=== PATIENT | male | born 1950 | race Caucasian/White ===

== ENCOUNTER 2020-10-17 08:40 | Outpatient (CLI) | payer BC, SELFPAY ==
--- NOTE | 2020-10-17 | EST_ITS ---
Patient Info Name: Elmer Cain Age: 70 years : 1950 Gender: Male Ht: 66 in Wt: 187 lbs BSA: 2.01 m2 HR: 56 bpm BP: 121 / 75 mmHg Exam Date: 10/17/2020 9:16 AM Exam Location: [facility] Stress Patient Status: Outpatient Admit Date: 10/17/2020 Staff Ordering Physician: Alex Torres MD Food Preservation Scientist: Kell Monzon RDCS Attending Provider: Alex Torres MD Exercise Technologist: Estefani Luna CT Exercise Physician: Chet Desir MD Exam Type: CA echo dobutamine stress Study Info Indications - STABLE ANGINA PECTORIS Dobutamine stress echocardiogram is performed. Summary 1. The basal to mid inferior wall(s) are severely hyopkinetic post stress. 2. Overall global left ventricular systolic function Improved post stress. Ejection fraction 70 75%. 3. Abnormal dobutamine stress test for ischemic ST changes by ECG criteria. 4. Dobutamine stress echocardiogram is abnormal for ischemia. Stress Echo Findings Left Ventricle Left ventricular end systolic volume decreases post stress. The basal to mid inferior wall(s) are severely hyopkinetic post stress. Overall global left ventricular systolic function Improved post stress. Ejection fraction 70 75%. Left ventricular wall thickness is mildly increased. Left Ventricle Left ventricular chamber dimension is mildly enlarged. Left ventricular chamber wall thickness, systolic and diastolic function are normal with no regional wall motion abnormalities with an estimated ejection fraction of 65-70%. Left ventricular chamber dimension is mildly enlarged. Left Atria Left atrial chamber dimension is moderately enlarged. Left atrial chamber dimension is moderately enlarged. Right Atria Right atrial chamber dimension is mildly enlarged. Right atrial chamber dimension is mildly enlarged. Protocol: Dobutamine Max Pred HR: 150 bpm Target HR: 128 bpm Target HR Summary: Patient's target heart rate was achieved BP Response: Normal blood pressure response Termination Reason: Completed protocol Cardiac Symptoms: None Resting ECG Normal sinus rhythm. Inferior and anterolateral ST T wave abnormalities, consider ischemia. Stress ECG Exaggeration of the baseline ST abnormality. Greater than 1 mm of horizontal or downsloping ST depression - inferior leads. Greater than 1 mm of horizontal or downsloping ST depression - anterolateral leads. Arrhythmias Frequent PVCs. Occasional PACs. Short atrial runs also noted. Report Signatures Stress ECG Echo
== END 2020-10-17 08:41 | disposition home or self-care (01) ==
PROVIDERS: PCP Internal Medicine
DX: I20.8 Other forms of angina pectoris (principal); I25.10 Atherosclerotic heart disease of native coronary artery without angina pectoris
CPT/HCPCS: 93351; J0461; J1250

== ENCOUNTER 2022-05-06 00:15 | Day surgery (SDC) | payer MEDICARE, OTHER, SELFPAY ==
[2022-04-28 14:37] VITALS: BMI 29.5
--- NOTE | 2022-05-05 17:03 | PM.HPGS ---
History of Present Illness History of Present Illness Consent: Risks, benefits, and alternatives have been discussed and questions answered. Patient agrees to proceed with procedure. Chief complaint: dysphagia Narrative: Elmer Cain is a 71 year old male referred for investigation of chronic acid reflux. He has been taking omeprazole for quite a while. He is concerned about possible side effects from it. He stopped taking it a couple months ago and now uses a powdered substance containing immunoglobulins each morning. It seems to be helping him preventing heartburn. In the past his typical heartburn attack would be that he would have severe burning in his mid chest particularly when he would bend over. 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 He does not however regurgitate. Review of Systems Review of Systems: All systems reviewed & are unremarkable except as noted in HPI and below PMFSH Past Medical History Medical History Fusion of lumbar spine Hyperlipidemia Hypertension Migraine BABAK (obstructive sleep apnea) Thalassemia minor Surgical History Surgical History H/O aortic valve replacement Hx of CABG Family History Family History Mother Patient's mother is Family history of malignant neoplasm of ovary Father Patient's father is Other Family history of cardiovascular disease Family history of malignant neoplasm Hypertension Social History Social History Smoking status: Never smoker Alcohol intake: never Substance use: never Substance use type: does not use Lack of Transportation: No Lack of Food: Never True Current Housing: I Have Housing Concerned About Future Housing: No Difficulty Paying Gas/Electric Bills: No Difficulty Paying for Meds: No Currently Unemployed: No Education: Bachelor's Degree Difficulty w/ Childcare or Family Care: No Living arrangements: with family Spiritual care concerns: No Meds Home Medications and Allergies Home Medications Medication Instructions Recorded Confirmed Type apixaban 5 mg tablet (Eliquis) 5 mg PO BID 04/24/19 04/28/22 History aspirin 81 mg tablet,delayed 81 mg PO DAILY 04/24/19 04/28/22 History release (Aspir-Low) atorvastatin 40 mg tablet 40 mg PO HS 04/24/19 04/28/22 History fexofenadine 180 mg tablet 180 mg PO DAILY 04/24/19 04/28/22 History (Yenny Allergy) metoprolol tartrate 25 mg tablet 25 mg PO BID 04/24/19 04/28/22 History vitamin E 268 mg (400 unit) capsule 450 unit PO DAILY 04/24/19 04/28/22 History dofetilide 250 mcg capsule 250 mcg PO BID 02/27/20 04/28/22 History tramadol 50 mg tablet 50 mg PO Q6H PRN pain #30 tabs 10/06/21 04/28/22 Rx sildenafil 100 mg tablet 100 mg PO DAILY PRN sexual 04/14/22 04/28/22 Rx activity #30 tabs amlodipine 5 mg tablet 5 mg PO DAILY 04/28/22 04/28/22 History ascorbic acid (vitamin C) 1,000 mg 1 g PO DAILY 04/28/22 04/28/22 History capsule azelastine 205.5 mcg (0.15 %) 2 spray intranasal BID PRN Allergy 04/28/22 04/28/22 History nasal spray Symptoms carboxymethylcellulose sodium 1 % 2 drp EACH EYE BID PRN Dry Eyes 04/28/22 04/28/22 History eye liquid gel drops losartan 100 mg tablet 100 mg PO DAILY 04/28/22 04/28/22 History olopatadine 0.1 % eye drops 1 drp ophthalmic (eye) BID PRN 04/28/22 04/28/22 History Allergy Symptoms vitamin B complex 1 cap PO DAILY 04/28/22 04/28/22 History Allergies Allergy/AdvReac Type Severity Reaction Status Date / Time carrot Allergy Severe Unknown Verified 05/06/22 12:53 sibley Allergy Severe Swelling Verified 05/06/22 12:53 of the Eye Exam Const: General: alert Orientation/consciousness: patie
[2022-05-06] MEDS: GENTAMICIN 80MG/SOD CHL 50 ML 80 MG/50 ML BAG 100 MG IVPB (12:48)
[2022-05-06] MEDS: LACTATED RINGERS 1,000 ML 150 ML IV CONT (12:53)
[2022-05-06 12:57] VITALS: BP 145/78; PULSE 66; RESP 18; TEMP 36.2; O2SAT 99
[2022-05-06] MEDS: AMPICILLIN 2 GM/NS 100 ML 2 GM/100 ML BAG IVPB (13:22)
[2022-05-06 13:38] VITALS: BP 94/49; PULSE 58; RESP 23; O2SAT 99
--- NOTE | 2022-05-06 13:41 | WPDANESEPPF ---
Anes - Initial Pre Proc Eval Procedure: Operation Date: 05/06/22 14:00 Proposed Procedures p Esophagogastroduodenoscopy - Praveen Swann MD Date/Time: 05/06/22 13:41 Surgeon: Praveen Swann MD Pre Op Diagnosis: dysphagia Patient Data Age: 71 Gender: M Height: 1.68 m Weight: 85 kg Last Vital Signs Temp 97.1 F L 05/06/22 12:57 Pulse 66 05/06/22 12:57 Resp 18 05/06/22 12:57 BP 145/78 H 05/06/22 12:57 Pulse Ox 99 05/06/22 12:57 O2 Del Method Room Air 05/06/22 12:57 Allergies Allergy/AdvReac Type Severity Reaction Status Date / Time carrot Allergy Severe Unknown Verified 05/06/22 12:53 sibley Allergy Severe Swelling Verified 05/06/22 12:53 of the Eye Home Medications Medication Instructions Recorded Confirmed Type apixaban 5 mg tablet (Eliquis) 5 mg PO BID 04/24/19 05/06/22 History aspirin 81 mg tablet,delayed 81 mg PO DAILY 04/24/19 04/28/22 History release (Aspir-Low) atorvastatin 40 mg tablet 40 mg PO HS 04/24/19 04/28/22 History fexofenadine 180 mg tablet 180 mg PO DAILY 04/24/19 04/28/22 History (Yenny Allergy) metoprolol tartrate 25 mg tablet 25 mg PO BID 04/24/19 05/06/22 History vitamin E 268 mg (400 unit) capsule 450 unit PO DAILY 04/24/19 04/28/22 History dofetilide 250 mcg capsule 250 mcg PO BID 02/27/20 05/06/22 History tramadol 50 mg tablet 50 mg PO Q6H PRN pain #30 tabs 10/06/21 04/28/22 Rx sildenafil 100 mg tablet 100 mg PO DAILY PRN sexual 04/14/22 04/28/22 Rx activity #30 tabs amlodipine 5 mg tablet 5 mg PO DAILY 04/28/22 04/28/22 History ascorbic acid (vitamin C) 1,000 mg 1 g PO DAILY 04/28/22 04/28/22 History capsule azelastine 205.5 mcg (0.15 %) 2 spray intranasal BID PRN Allergy 04/28/22 04/28/22 History nasal spray Symptoms carboxymethylcellulose sodium 1 % 2 drp EACH EYE BID PRN Dry Eyes 04/28/22 04/28/22 History eye liquid gel drops losartan 100 mg tablet 100 mg PO DAILY 04/28/22 05/06/22 History olopatadine 0.1 % eye drops 1 drp ophthalmic (eye) BID PRN 04/28/22 04/28/22 History Allergy Symptoms vitamin B complex 1 cap PO DAILY 04/28/22 04/28/22 History Patient hx anesthesia problems: none Family hx anesthesia problems: none Results Review: All pre-operative results and documents have been reviewed as part of the pre-operative evaluation. [facility] Past Medical History Medical History Fusion of lumbar spine Hyperlipidemia Hypertension Migraine BABAK (obstructive sleep apnea) Thalassemia minor Surgical History Surgical History H/O aortic valve replacement Hx of CABG Family History Family History Mother Patient's mother is Family history of malignant neoplasm of ovary Father Patient's father is Other Family history of cardiovascular disease Family history of malignant neoplasm Hypertension Social History Social History Smoking status: Never smoker Alcohol intake: never Substance use: never Substance use type: does not use Lack of Transportation: No Lack of Food: Never True Current Housing: I Have Housing Concerned About Future Housing: No Difficulty Paying Gas/Electric Bills: No Difficulty Paying for Meds: No Currently Unemployed: No Education: Bachelor's Degree Difficulty w/ Childcare or Family Care: No Living arrangements: with family Spiritual care concerns: No Anes - Eval Final PreProcedure Day of Procedure 05/06/22 13:41 Patient weight: obese Heart: irregular rhythm Lungs: clear to auscultation Airway: Mallampati scale class II Neurological: alert and oriented Last oral intake: >/= 8 hours ASA classification: III Emergent: no Anesthetic plan: proceed Anesthesia type and monitoring: general GIVS and standard monito
[2022-05-06 13:48] VITALS: BP 116/70; PULSE 60; RESP 20; O2SAT 99
[2022-05-06 13:58] VITALS: BP 110/69; PULSE 51; RESP 20; O2SAT 97
== END 2022-05-06 14:18 | disposition home or self-care (01) ==
PROVIDERS: PCP Internal Medicine; Visit Provider Internal Medicine Gastroenterology
PROC: 0DJ08ZZ Inspection of Upper Intestinal Tract, Via Natural or Artificial Opening Endoscopic (ICD-10-PCS; CPT 43235; principal; 2022-05-06 14:00)
DX: K21.00 Gastro-esophageal reflux disease with esophagitis, without bleeding (principal); I10 Essential (primary) hypertension; E78.5 Hyperlipidemia, unspecified; G47.33 Obstructive sleep apnea (adult) (pediatric); Z98.1 Arthrodesis status; Z95.4 Presence of other heart-valve replacement; Z95.1 Presence of aortocoronary bypass graft; Z79.01 Long term (current) use of anticoagulants; Z79.82 Long term (current) use of aspirin
CPT/HCPCS: 43239; 88305; J0290; J1580; J2001; J2704; J7120

== ENCOUNTER 2023-09-13 15:24 | Outpatient (CLI) | payer MEDICARE, OTHER, SELFPAY ==
--- NOTE | ~2023-09-13 | MR_ITS ---
MRI of the lumbar spine Clinical History: Back pain Technique: Axial T2-weighted images, and sagittal T1-weighted, T2-weighted, and T2 fat-sat images wer e acquired. Findings: No acute fracture or subluxation seen. There is anterior and interbody fusion from L3 throu gh L5, the stenosis is susceptibility artifact. No suspicious bone marrow signal abnormality seen. At L1-L2, there is mild disc bulge and mild facet arthropathy. No lena central canal stenosis. There is moderate left neural foraminal narrowing, and moderate to severe right neural foraminal narrowing . At L2-L3, there is degenerative disc narrowing. Diffuse disc bulge and moderate facet arthropathy res ult in severe spinal canal stenosis/thecal sac compression. There is severe bilateral neural foramina l narrowing. At L3-L4, there is no disc bulge or herniation. There is mild to moderate facet arthropathy. No centr al canal stenosis. There is moderate bilateral neural foraminal narrowing, right worse than left. At L4-L5, there is mild disc bulge and moderate facet arthropathy. No central canal stenosis. There i s severe bilateral neural foraminal narrowing, left worse than right. At L5-S1, there is disc bulge and moderate facet arthropathy. No lena central canal stenosis. There is severe bilateral neural foraminal narrowing. Paravertebral soft tissues are unremarkable. Impression: Moderate to severe degenerative spondylosis, as detailed above, worst at L2-L3. Anterior and interbody fusion from L3 through L5. Reviewed, dictated and finalized at [facility]. Impression: Moderate to severe degenerative spondylosis, as detailed above, worst at L2-L3. Anterior and interbody fusion from L3 through L5.
== END 2023-09-13 15:25 ==
LOC: GOSHIMG 15:29
PROVIDERS: Visit Provider Physician Assistant
DX: M54.9 Dorsalgia, unspecified (principal); M43.06 Spondylolysis, lumbar region; Z98.1 Arthrodesis status
CPT/HCPCS: 72148